=== PATIENT | male | born 1990 | race American Indian/Alaskan Native ===

== ENCOUNTER 2018-09-02 01:54 | Emergency (ER) | payer SELFPAY ==
[2018-09-02 03:06] VITALS: BP 140/83; PULSE 64; RESP 18; TEMP 98.4; O2SAT 100
[2018-09-02] MEDS ORDERED: Tobramycin 0.3% OPH OINT OU ONE (03:23)
--- NOTE | 2018-09-02 03:24 | ED PDOC ---
Arrival/HPI - General Chief Complaint: Eye Problem Time Seen by Provider: 09/02/18 03:09 Historian: Patient - History of Present Illness Narrative History of Present Illness (Text): 09/02/18 03:19 Viral Lara is a 28 year old male, with no significant past medical history, who presents to the ED complaining of bilateral eye redness and pruritus. Patient states he initially had redness and itching to his right eye a few days prior, which subsequently spread to his left eye. Patient also notes some discharge from the right eye. Patient denies any contact lens use, fever, vision changes, headache, dizziness, or any other complaints. Symptom Onset: Gradual Symptom Course: Unchanged Activities at Onset: Light Context: Home Past Medical History - Provider Review Nursing Documentation Reviewed: Yes - Infectious Disease Hx of Infectious Diseases: None - Psychiatric Hx Substance Use: No - Anesthesia Hx Anesthesia: No Family/Social History - Physician Review Nursing Documentation Reviewed: Yes Family/Social History: Unknown Family HX Smoking Status: Former Smoker Hx Alcohol Use: Yes Frequency of alcohol use: Socially Hx Substance Use: No Allergies/Home Meds Allergies/Adverse Reactions: Allergies No Known Allergies Allergy (Verified 09/02/18 03:11) Review of Systems - Physician Review All systems were reviewed & negative as marked: Yes - Review of Systems Constitutional: Normal. absent: Fevers Eyes: Other (+eye redness/itching) ENT: Normal Respiratory: Normal. absent: SOB, Cough Cardiovascular: Normal. absent: Chest Pain Gastrointestinal: Normal. absent: Abdominal Pain, Diarrhea, Nausea, Vomiting Genitourinary Male: Normal. absent: Dysuria, Frequency, Hematuria, Urinary Output Changes Musculoskeletal: Normal. absent: Back Pain, Neck Pain Skin: Normal. absent: Rash Neurological: Normal. absent: Headache, Dizziness Endocrine: Normal Hemo/Lymphatic: Normal Psychiatric: Normal Physical Exam Vital Signs Reviewed: Yes Vital Signs Temp Pulse Resp BP Pulse Ox 09/02/18 03:05 98.4 F 64 18 140/83 100 Temperature: Afebrile Blood Pressure: Normal Pulse: Regular Respiratory Rate: Normal Appearance: Positive for: Well-Appearing, Non-Toxic, Comfortable Pain Distress: None Mental Status: Positive for: Alert and Oriented X 3 - Systems Exam Head: Present: Atraumatic, Normocephalic Pupils: Present: PERRL Extroacular Muscles: Present: EOMI Conjunctiva: Present: Injected (Bilateral conjunctival erythema, scanty discharge from right eye) Mouth: Present: Moist Mucous Membranes Neck: Present: Normal Range of Motion Respiratory/Chest: Present: Clear to Auscultation Cardiovascular: Present: Regular Rate and Rhythm Neurological: Present: GCS=15, CN II-XII Intact, Speech Normal Skin: Present: Warm, Dry, Normal Color. No: Rashes Psychiatric: Present: Alert, Oriented x 3, Normal Insight, Normal Concentration Medical Decision Making ED Course and Treatment: 09/02/18 03:19 Impression: 28 year old male complaining of bilateral eye redness and itching. Differential Diagnosis included but are not limited to: conjunctivitis Plan: -- Tobrex -- Reassess and disposition Progress Notes: - Scribe Statement The provider has reviewed the documentation as recorded by the Elza Bray Provider Scribe Attestation: All medical record entries made by the Scribe were at my direction and personally dictated by me. I have reviewed the chart and agree that the record accurately reflects my personal performance of the history, physical exam, medical decision making, and the department course for this patient. I have also personally directed, reviewed, and agree with the discharge instructions and disposition. Disposition/Present on Arrival - Present on Arrival Any Indicators Present on Arrival: No History of DVT/PE: No History of Uncontrolled Diabetes: No Urinary Catheter: No History of Decub. Ulcer: No History Surgical Site Infection Following: None - Disposition Have Diagnosis and Disposition been Completed?: Yes Diagnosis: Acute conjunctivitis of both eyes Disposition: HOME/ ROUTINE Disposition Time: 03:27 Patient Plan: Discharge Condition: GOOD Discharge Instructions (ExitCare): Conjunctivitis ([place]) (DC) Additional Instructions: Use medication as prescribed/follow up with the opthalmologist this week Prescriptions: Naphazoline/Pheniramine Opht [Naphcon-A 0.025%-0.3% 15 Ml] 1 drop OU TID PRN #1 bottle PRN Reason: itchy eyes Tobramycin 0.3% [Tobrex 0.3% Ophth Soln] 2 drop OU QID #1 bottle Referrals: Arvin Shane MD [Staff Provider] - Follow up with primary Forms: [employer] (Telugu)
== END 2018-09-02 03:55 | disposition home or self-care (01) ==
LOC: ED 01:54
DX: H10.33 Unspecified acute conjunctivitis, bilateral (principal); Z87.891 Personal history of nicotine dependence